=== PATIENT | male | born 1985 | race Asian ===

== ENCOUNTER 2020-09-07 09:19 | Emergency (ER) | payer BC, OTHER ==
[~2020-09-07] VITALS: Ht 170.2 cm; Wt 112.5 kg
[2020-09-07 09:46] VITALS: BP 117/71
[2020-09-07] MEDS ORDERED: KETOROLAC TROMETHAMINE 15 MG/ML VIAL ONE (10:51)
[2020-09-07] MEDS ORDERED: KETOROLAC TROMETHAMINE INJ 30 MG/ML VIAL IM ONE (11:00)
--- NOTE | 2020-09-07 11:40 | NUR ---
Patient discharged to home in stable condition. Written and verbal after care instructions given. Patient verbalizes understanding of instruction.
--- NOTE | 2020-09-08 14:09 | NUR ---
RELAYED POSITIVE PCR RESULT TO PATIENT. INSTRUCTED TO CALL INFECTION CONTROL AND QUARANTINE X14 DAYS.
== END 2020-09-07 11:40 | disposition home or self-care (01) ==
LOC: ER 09:24
DX: U07.1 COVID-19 (principal); R51.9 Headache, unspecified; R43.8 Other disturbances of smell and taste
CPT/HCPCS: 96372; 99283; C9803; J1885; U0003

== ENCOUNTER 2020-09-13 21:23 | Inpatient (IN) | payer BC, OTHER ==
[~2020-09-13] VITALS: Ht 170.2 cm; Wt 105.7 kg
--- NOTE | 2020-09-13 22:33 | NUR ---
BIBSELF C/O SOB.RECENTLY TESTED POS FOR COVID X4 DAYS AGO.; PT AAOX4, PLACED ON O2, 2LPM SAT 97%, PT VSS, NAD NOTED. PENDING ER PROVIDER DEBBI
[2020-09-13] MEDS ORDERED: DEXAMETHASONE SOD PHOSPHATE 10 MG in IV D5W 50 ML IV ONE (23:00)
[2020-09-13] MEDS ORDERED: ACETAMINOPHEN ES 500 MG TABLET PO ONE (23:00)
--- NOTE | 2020-09-13 23:11 | NUR ---
piv started, blood collected sent to lab
--- NOTE | 2020-09-13 23:11 | NUR ---
covid and flu swabs sent
[2020-09-13 23:15] LABS: BASOPHILS % (AUTO) 0.5 % (0.0-2.0); HEMATOCRIT 41 % (39-51); HEMOGLOBIN 13.1 g/dL (13.5-17.5); LYMPHOCYTES # (AUTO) 0.9 /CMM (0.8-4.8); LYMPHOCYTES % (AUTO) 13.5 % (20.0-44.0); MEAN CORPUSCULAR HGB CONC 32 g/dl (31.0-36.0); MEAN CORPUSCULAR VOLUME 68 fL (80-96); MONOCYTES # (AUTO) 0.6 /CMM (0.1-1.30); MONOCYTES % (AUTO) 8.2 % (2.0-12.0); NEUTROPHILS # (AUTO) 5.3 /CMM (1.8-8.9); NEUTROPHILS % (AUTO) 77.8 % (43.0-81.0); PLATELET COUNT (AUTO) 134 /CMM (150-450); RED BLOOD CELL COUNT(AUTO) 6.03 MIL/uL (4.5-6.0); WHITE BLOOD COUNT (AUTO) 6.8 K/uL (4.3-11.0)
[2020-09-13] MEDS ORDERED: ACETAMINOPHEN ES 500 MG TABLET ONE (23:25)
[2020-09-13] MEDS ORDERED: DEXAMETHASONE SOD PHOSPHATE 10 MG/ML VIAL ONE (23:25)
[2020-09-13] MEDS ORDERED: IV NS 0.9% 1,000 ML BAG IV ONE (23:30)
[2020-09-13 23:32] LABS: ALBUMIN 3.4 g/dL (3.4-5.0); BILIRUBIN,TOTAL 0.4 mg/dL (0.2-1.0); CALCIUM, SERUM 8.6 mg/dL (8.5-10.1); CREATININE 1.1 mg/dL (0.6-1.3); POTASSIUM 2.9 mmol/L (3.5-5.1); TOTAL PROTEIN, SERUM 7.9 g/dL (6.4-8.2)
[2020-09-14 00:04] LABS: LYMPHOCYTES % (MANUAL) 14 % (16-48); MONOCYTES % (MANUAL) 13 % (0-11.0); NEUTROPHILS % (MANUAL) 73 (42-76)
[2020-09-14] MEDS ORDERED: ONDANSETRON HCL/PF 4 MG/2 ML VIAL IVP PRN (01:30)
[2020-09-14] MEDS ORDERED: ACETAMINOPHEN 325 MG TABLET PO PRN (01:30)
[2020-09-14] MEDS ORDERED: POTASSIUM CHLORIDE 20 MEQ TAB.PRT.SR PO ONE ×3 (01:30→02:53)
[2020-09-14] MEDS ORDERED: IV NS 0.9% 100 ML IV PRN (01:30)
--- NOTE | 2020-09-14 02:24 | NUR ---
CALLED AFTER HOUR PHARMACY TO VERIFY THE ADMITTING ORDERS
[2020-09-14] MEDS ORDERED: AZITHROMYCIN 250 MG TABLET ONE (02:53)
[2020-09-14] MEDS ORDERED: CEFTRIAXONE 1GM BAG (ER ONLY) 50 ML IV ONE (02:53)
[2020-09-14] MEDS: CEFTRIAXONE 1 G in IV D5W 50 ML IV SCH (03:02)
[2020-09-14] MEDS: AZITHROMYCIN 250 MG TABLET PO SCH (03:03)
--- NOTE | 2020-09-14 03:41 | NUR ---
REPORT GIVEN TO PRODUCTION ARTISTTYLER LEAVITT. WILL TRANSPORT PT VIA ACLS PROTOCOL.
--- NOTE | 2020-09-14 03:54 | NUR ---
pt transported to 2nd floor
[2020-09-14 04:30] VITALS: BP 106/70
--- NOTE | 2020-09-14 04:30 | NUR ---
RANGER AIDE NOTE: RECEIVED PATIENT FROM ER, NO ACUTE DISTRESS NOTED. BREATHING EVEN AND UNLABORED, NO SOB NOTED. IV TO LAC IN PLACE. ORIENTED PATIENT TO ROOM AND USE OF CALL LIGHT. ISOLATION PRECAUTIONS OBSERVED. BED LOCKED AND IN LOWEST POSITION, CALL LIGHT IN REACH. WILL CONTINUE TO MONITOR.
--- NOTE | 2020-09-14 07:15 | NUR ---
CASINO GAMES DEALER NOTE: PATIENT RESTING IN BED, NO ACUTE DISTRESS NOTED. BREATHING EVEN AND UNLABORED, NO SOB NOTED. IV TO LAC IN PLACE. ISOLATION PRECAUTIONS OBSERVED. BED LOCKED AND IN LOWEST POSITION, CALL LIGHT IN REACH. WILL CONTINUE ENDORSE TO DAY NURSE TO CONTINUE WITH PLAN OF CARE.
[2020-09-14 08:00] VITALS: BP 96/61
[2020-09-14] MEDS ORDERED: IV NS 0.9% 1,000 ML IV PRN (08:30)
--- NOTE | 2020-09-14 09:00 | NUR ---
RN NOTES PATIENT SEEN BY JAVI ALONZO.
[2020-09-14] MEDS ORDERED: MULT-447 PO (09:10)
[2020-09-14] MEDS ORDERED: ALLO300T2 PO (09:10)
--- NOTE | 2020-09-14 09:31 | NUR ---
RN NOTES PATIENT SEEN BY DR. KONG.
[2020-09-14] MEDS: GUAIFENESIN/D-METHORPHAN HB 5 ML UDC PO PRN ×2 (11:15→17:54)
[2020-09-14 11:22] LABS: CALCIUM, SERUM 8.9 mg/dL (8.5-10.1); POTASSIUM 3.8 mmol/L (3.5-5.1)
[2020-09-14 11:29] LABS: ALBUMIN 3.2 g/dL (3.4-5.0); BILIRUBIN,TOTAL 0.3 mg/dL (0.2-1.0); MAGNESIUM 2.5 mg/dL (1.8-2.4); PHOSPHORUS 3.2 mg/dL (2.5-4.9); TOTAL PROTEIN, SERUM 8.1 g/dL (6.4-8.2)
[2020-09-14 11:45] LABS: THYROID STIMULATING HORMONE 0.432 uIU/mL (0.358-3.74)
[2020-09-14] MEDS: DEXAMETHASONE SOD PHOSPHATE 10 MG/ML VIAL IV SCH (14:59)
[2020-09-14] MEDS: ENOXAPARIN SODIUM 40 MG/0.4 ML DISP.SYRIN SQ SCH (15:00)
[2020-09-14 17:00] VITALS: BP 103/60
[2020-09-14 19:18] LABS: BILIRUBIN,URINE NEGATIVE (NEGATIVE); BLOOD, URINE NEGATIVE Ery/uL (NEGATIVE); COLOR,URINE YELLOW (YELLOW); LEUKOCYTE ESTERASE ,URINE NEGATIVE (NEGATIVE); NITRITE, URINE NEGATIVE (NEGATIVE); PROTEIN,URINE TRACE mg/dl (NEGATIVE); UGLUCOSE 500 MG/DL mg/dL (NEGATIVE); UROBILINOGEN,URINE 0.2 EU/dL (0.2)
[2020-09-14 19:30] LABS: BACTERIA,URINE Rare /HPF (None Seen); RBC,URINE 0-2 /HPF (0-2); WBC,URINE 0-2 /HPF (0-3)
[2020-09-14 19:31] LABS: MUCUS,URINE Few /LPF (None Seen); SQUAMOUS EPITHELIAL CELL,UR None Seen /HPF (None Seen)
--- NOTE | 2020-09-14 19:47 | NUR ---
SUPERVISOR BACKFILLING NOTES PATIENT RESTING COMFORTABLY IN BED WATCHING TV. TITRATED PATIENT DURING THE SHIFT SINCE THIS AM, NOW ON ROOM AIR DIAN WELL WITH SPO2 OF 94-96%. NOTED ON AND OFF COUGH BUT ABLE TO COUGH OUT SECRETIONS. AMBULATORY WITH STEADY GAIT. LEFT AC # 20 SL INTACT AND PATENT. BED IN LOWEST POSITION ,LOCKED. CALL LIGHT WITHIN REACH. IN NO APPARENT DISTRESS.
[2020-09-14 20:00] VITALS: BP 108/70
--- NOTE | 2020-09-14 20:30 | NUR ---
PLYCOR OPERATOR NOTE: PATIENT RESTING IN BED, NO ACUTE DISTRESS NOTED. BREATHING EVEN AND UNLABORED, NO SOB NOTED. IV TO LAC IN PLACE. ISOLATION PRECAUTIONS OBSERVED. BED LOCKED AND IN LOWEST POSITION, CALL LIGHT IN REACH. WILL CONTINUE TO MONITOR.
--- NOTE | 2020-09-14 23:00 | NUR ---
WEB APPLICATIONS ADMINISTRATOR NOTE: PATIENT CONTINUES TO HAVE DRY COUGH AND HAVING TROUBLE SLEEPING. CONTACTED SOURCE WATER PROTECTION SPECIALIST MD AND RECEIVED ORDER TO CHANGE COUGH MEDICATION TO ROBITUSSIN AC 10ML EVERY 6 HOURS NEEDED. ORDER NOTED AND CARRIED OUT. WILL CONTINUE TO MONITOR.
[2020-09-14] MEDS: GUAIFENESIN/CODEINE 10 ML UDC PO PRN (23:03)
[2020-09-15] VITALS: BP 148/87
[2020-09-15] MEDS: CEFTRIAXONE 1 G in IV D5W 50 ML IV SCH (01:34)
[2020-09-15] MEDS: GUAIFENESIN/CODEINE 10 ML UDC PO PRN ×3 (05:53→20:58)
--- NOTE | 2020-09-15 06:30 | NUR ---
RANCH HAND SUPERVISOR NOTE: PATIENT RESTING IN BED, NO ACUTE DISTRESS NOTED. BREATHING EVEN AND UNLABORED, NO SOB NOTED. IV TO LAC IN PLACE. ISOLATION PRECAUTIONS OBSERVED. PATIENT COMPLAINING OF COUGH AND REQUESTING FOR MEDICATION. ROBITUSSIN AC 10ML ORAL GIVEN PER MD ORDER. BED LOCKED AND IN LOWEST POSITION, CALL LIGHT IN REACH. WILL CONTINUE ENDORSE TO DAY NURSE TO CONTINUE WITH PLAN OF CARE.
--- NOTE | 2020-09-15 07:30 | NUR ---
PT RECEIVED RESTING COMFORTABLY IN BED. NO S/S OR C/O PAIN OR DISTRESS NOTED. SIDE RAILS UP X2, CALL LIGHT LEFT WITHIN REACH. WILL CONTINUE PLAN OF CARE.
[2020-09-15 08:00] VITALS: BP 112/69
[2020-09-15 08:29] LABS: BASOPHILS % (AUTO) 0.1 % (0.0-2.0); HEMATOCRIT 43 % (39-51); HEMOGLOBIN 13.5 g/dL (13.5-17.5); LYMPHOCYTES # (AUTO) 0.8 /CMM (0.8-4.8); LYMPHOCYTES % (AUTO) 5.8 % (20.0-44.0); MEAN CORPUSCULAR HGB CONC 31 g/dl (31.0-36.0); MEAN CORPUSCULAR VOLUME 68 fL (80-96); MONOCYTES # (AUTO) 0.9 /CMM (0.1-1.30); MONOCYTES % (AUTO) 6.5 % (2.0-12.0); NEUTROPHILS # (AUTO) 11.6 /CMM (1.8-8.9); NEUTROPHILS % (AUTO) 87.6 % (43.0-81.0); PLATELET COUNT (AUTO) 179 /CMM (150-450); RED BLOOD CELL COUNT(AUTO) 6.32 MIL/uL (4.5-6.0); WHITE BLOOD COUNT (AUTO) 13.2 K/uL (4.3-11.0)
[2020-09-15] MEDS: ALLOPURINOL 100 MG TABLET PO SCH (08:57)
[2020-09-15] MEDS: DEXAMETHASONE SOD PHOSPHATE 10 MG/ML VIAL IV SCH (08:57)
[2020-09-15] MEDS: MULTIVIT W/MINERALS 1 TAB TABLET PO SCH (08:57)
[2020-09-15] MEDS: ENOXAPARIN SODIUM 40 MG/0.4 ML DISP.SYRIN SQ SCH (08:58)
[2020-09-15 11:15] LABS: CALCIUM, SERUM 8.9 mg/dL (8.5-10.1); CREATININE 0.9 mg/dL (0.6-1.3); MAGNESIUM 2.4 mg/dL (1.8-2.4); PHOSPHORUS 4.2 mg/dL (2.5-4.9); POTASSIUM 3.9 mmol/L (3.5-5.1)
[2020-09-15 12:00] VITALS: BP 106/57
--- NOTE | 2020-09-15 19:30 | NUR ---
TELE/RN OPENING NOTES RECEIVED PATIENT IN BED RESTING. PATIENT IS ALERT AND ORIENTED X 4. NO SIGNS OF SOB OR RESPIRATORY DISTRESS NOTED. PATIENT IN NO SIGNS OF DISTRESS. TELE READING SR. PATIENT HAS IV ACCESS ON RIGHT FOREARM #22G INTACT FLUSHING WELL. SAFETY MEASURES ARE IN PLACE, BED IS LOCKED AND PLACED IN THE LOW POSITION, SIDE RAILS UP X 2. CALL LIGHT IS WITHIN REACH WILL MONITOR THROUGH OUT SHIFT.
--- NOTE | 2020-09-15 19:57 | NUR ---
VERTICAL PUNCH OPERATOR CLOSING NOTES PATIENT RESTING COMFORTABLY IN BED WATCHING TV. A/O X4, ABLE TO MAKE NEEDS KNOWN. IN NO DISTRESS AT THIS TIME. ON ROOM AIR, TOLERATING WELL O2SAT 95%. NOTED ON AND OFF COUGH BUT ABLE TO COUGH OUT SECRETIONS, ADMINISTERED ROBITUSSIN DURING THE DAY. AMBULATORY WITH STEADY GAIT. LEFT AC # 20 LEAKING, DISCONTINUED, AND NO BLEEDING NOTED. INSERTED RIGHT FOREARM IV 22G, C/D/I. BED IN LOWEST POSITION SIDE RAILS UPX2 AND LOCKED. CALL LIGHT WITHIN REACH. ENDORSED PLAN OF CARE TO ONCOMING NURSE.
[2020-09-15 20:00] VITALS: BP 103/54
[2020-09-16] VITALS: BP 99/56
[2020-09-16] MEDS: AZITHROMYCIN 250 MG TABLET PO SCH (02:01)
[2020-09-16] MEDS: CEFTRIAXONE 1 G in IV D5W 50 ML IV SCH (02:01)
[2020-09-16] MEDS: GUAIFENESIN/CODEINE 10 ML UDC PO PRN ×3 (03:45→21:43)
--- NOTE | 2020-09-16 03:45 | NUR ---
TELE/RN NOTES PATIENT REQUESTING FOR COUGH MED. PATIENT GIVEN ROBITUSSIN 10 ML PO. PATIENT IS STABLE WILL CONTINUE TO MONITOR.
[2020-09-16 04:00] VITALS: BP 108/64
--- NOTE | 2020-09-16 06:55 | NUR ---
TELE/RN CLOSING NOTES PATIENT IN BED RESTING. PATIENT IS ALERT AND ORIENTED X 4. NO SIGNS OF SOB OR RESPIRATORY DISTRESS NOTED. PATIENT IN NO SIGNS OF DISTRESS. TELE READING SR. PATIENT HAS IV ACCESS ON RIGHT FOREARM #22G INTACT FLUSHING WELL RUNNING NS AT 100CC/HR. ALL NEEDS HAVE BEEN MET DURING SHIFT. SAFETY MEASURES ARE IN PLACE, BED IS LOCKED AND PLACED IN THE LOW POSITION, SIDE RAILS UP X 2. CALL LIGHT IS WITHIN REACH. WILL ENDORSE CARE TO DAY SHIFT NURSE.
[2020-09-16 07:22] LABS: HEMATOCRIT 40 % (39-51); HEMOGLOBIN 12.6 g/dL (13.5-17.5); LYMPHOCYTES % (AUTO) 9.6 % (20.0-44.0); MEAN CORPUSCULAR HGB CONC 32 g/dl (31.0-36.0); MEAN CORPUSCULAR VOLUME 68 fL (80-96); MONOCYTES % (AUTO) 9.2 % (2.0-12.0); NEUTROPHILS # (AUTO) 8.7 /CMM (1.8-8.9); NEUTROPHILS % (AUTO) 81.2 % (43.0-81.0); PLATELET COUNT (AUTO) 181 /CMM (150-450); WHITE BLOOD COUNT (AUTO) 10.8 K/uL (4.3-11.0)
--- NOTE | 2020-09-16 07:30 | NUR ---
PEDIATRIC DIETICIAN OPENING NOTES BEDSIDE ENDORSEMENT DONE. PATIENT IS IN BED RESTING, AWAKE AND VERBALLY RESPONSIVE. ALERT AND ORIENTED X4. BREATHING EVEN AND UNLABORED, TOLERATING ROOM AIR, NO RESPIRATORY DISTRESS NOTED. ON TELEMONITORING, READING OF SR, HR IN THE MID 70'S, NO CARDIAC DISTRESS. IV LINE ON RIGHT FOREARM #22G INTACT AND PATENT. SAFETY MEASURES IN PLACE: BED IS LOCKED AND ON LOWEST POSITION, SIDE RAILS UP X 2, CALL LIGHT IS WITHIN REACH. WILL CONTINUE TO MONITOR.
[2020-09-16 07:44] LABS: CREATININE 0.8 mg/dL (0.6-1.3); POTASSIUM 3.5 mmol/L (3.5-5.1)
[2020-09-16 08:00] VITALS: BP 101/51
[2020-09-16 08:04] LABS: CALCIUM, SERUM 8.2 mg/dL (8.5-10.1)
[2020-09-16] MEDS: DEXAMETHASONE SOD PHOSPHATE 10 MG/ML VIAL IV SCH (09:44)
[2020-09-16] MEDS: ALLOPURINOL 100 MG TABLET PO SCH (09:44)
[2020-09-16] MEDS: MULTIVIT W/MINERALS 1 TAB TABLET PO SCH (09:44)
[2020-09-16] MEDS: ENOXAPARIN SODIUM 40 MG/0.4 ML DISP.SYRIN SQ SCH (09:45)
--- NOTE | 2020-09-16 12:57 | NUR ---
RN NOTES PATIENT REQUESTED FOR GUAIFENESIN MEDICATION FOR COUGH; TAKEN BY PATIENT, W/ GOOD EFFECT. VERBALIZED DECREASE IN COUGH EPISODE. WILL CONTINUE TO MONITOR.
--- NOTE | 2020-09-16 18:48 | NUR ---
TRAY ROOM WORKER CLOSING NOTES PATIENT IS IN BED AWAKE AND VERBALLY RESPONSIVE. ALERT AND ORIENTED X4, ABLE TO MAKE NEEDS KNOWN. BREATHING EVEN AND UNLABORED, TOLERATING ROOM AIR, NO RESPIRATORY DISTRESS NOTED. ON TELEMONITORING, READING OF SR, HR IN THE 70'S, NO CARDIAC DISTRESS. IV LINE ON RIGHT FOREARM #22G INTACT AND PATENT. SAFETY MEASURES MAINTAINED: BED IS LOCKED AND ON LOWEST POSITION, SIDE RAILS UP X 2, CALL LIGHT IS WITHIN REACH. WILL ENDORSE TO BUTTON SEWER RN FOR ANGELI.
[2020-09-16 21:05] VITALS: BP 104/58
[2020-09-17 00:22] VITALS: BP 115/63
[2020-09-17 05:36] VITALS: BP 104/67
[2020-09-17 07:08] LABS: BASOPHILS % (AUTO) 0.1 % (0.0-2.0); EOSINOPHILS % (AUTO) 0.1 % (0.0-6.0); HEMATOCRIT 40 % (39-51); HEMOGLOBIN 12.6 g/dL (13.5-17.5); LYMPHOCYTES # (AUTO) 1.3 /CMM (0.8-4.8); LYMPHOCYTES % (AUTO) 15.2 % (20.0-44.0); MEAN CORPUSCULAR HGB CONC 32 g/dl (31.0-36.0); MEAN CORPUSCULAR VOLUME 68 fL (80-96); MONOCYTES # (AUTO) 0.9 /CMM (0.1-1.30); MONOCYTES % (AUTO) 11.2 % (2.0-12.0); NEUTROPHILS # (AUTO) 6.1 /CMM (1.8-8.9); NEUTROPHILS % (AUTO) 73.4 % (43.0-81.0); PLATELET COUNT (AUTO) 205 /CMM (150-450); RED BLOOD CELL COUNT(AUTO) 5.81 MIL/uL (4.5-6.0); WHITE BLOOD COUNT (AUTO) 8.3 K/uL (4.3-11.0)
--- NOTE | 2020-09-17 07:32 | NUR ---
SPRING MACHINE OPERATOR NOTE RECEIVED PATIENT IN BED. ALERT AND AWAKE ORIENTED X4 WATCHING TV. BED IN LOWEST POSITION,LOCKED. ABLE TO VERBALIZE NEEDS.
[2020-09-17 07:46] LABS: CALCIUM, SERUM 8.4 mg/dL (8.5-10.1); CREATININE 0.7 mg/dL (0.6-1.3); POTASSIUM 3.7 mmol/L (3.5-5.1)
[2020-09-17 08:00] VITALS: BP 104/62
[2020-09-17] MEDS: DEXAMETHASONE SOD PHOSPHATE 10 MG/ML VIAL IV SCH (09:38)
[2020-09-17] MEDS: MULTIVIT W/MINERALS 1 TAB TABLET PO SCH (09:38)
[2020-09-17] MEDS: ALLOPURINOL 100 MG TABLET PO SCH (09:38)
[2020-09-17] MEDS: ENOXAPARIN SODIUM 40 MG/0.4 ML DISP.SYRIN SQ SCH (09:42)
--- NOTE | 2020-09-17 11:15 | NUR ---
AIRCRAFT SYSTEMS REPAIRER NOTES PATIENT SEEN BY DR. KONG
[2020-09-17 12:00] VITALS: BP 97/61
[2020-09-17 16:00] VITALS: BP 102/59
[2020-09-17] MEDS: GUAIFENESIN/CODEINE 10 ML UDC PO PRN (17:42)
--- NOTE | 2020-09-17 19:15 | NUR ---
ONCOLOGY PHARMACIST NOTES PATIENT RESTING COMFORTABLY IN BED WATCHING TV. REMAIN ON ROOM AIR DIAN WELL WITH SPO2 OF 90-96%. STILL WITH ON AND OFF COUGH BUT ABLE TO COUGH OUT SECRETIONS. AMBULATORY WITH STEADY GAIT. LEFT HAND # 24 SL INTACT AND PATENT. BED IN LOWEST POSITION ,LOCKED. CALL LIGHT WITHIN REACH. IN NO APPARENT DISTRESS.
--- NOTE | 2020-09-17 19:30 | NUR ---
SEARCH SPECIALIST NOTE: PATIENT RESTING IN BED, NO ACUTE DISTRESS NOTED. BREATHING EVEN AND UNLABORED, NO SOB NOTED. IV TO LEFT HAND IN PLACE. ISOLATION PRECAUTIONS OBSERVED. BED LOCKED AND IN LOWEST POSITION, CALL LIGHT IN REACH. WILL CONTINUE TO MONITOR.
[2020-09-17 20:00] VITALS: BP 100/59
[2020-09-18] VITALS: BP 126/59
[2020-09-18 04:00] VITALS: BP 115/69
[2020-09-18] MEDS: GUAIFENESIN/CODEINE 10 ML UDC PO PRN (05:09)
--- NOTE | 2020-09-18 05:10 | NUR ---
INFORMATION OPERATOR NOTE: PATIENT REQUESTING FOR COUGH MEDICATION, ROBITUSSIN AC 10ML ORAL GIVEN PER MD ORDER. WILL CONTINUE TO MONITOR.
--- NOTE | 2020-09-18 06:20 | NUR ---
DIE SET UP WORKER NOTE: PATIENT RESTING IN BED, NO ACUTE DISTRESS NOTED. BREATHING EVEN AND UNLABORED, NO SOB NOTED. IV TO LEFT HAND IN PLACE. ISOLATION PRECAUTIONS OBSERVED. BED LOCKED AND IN LOWEST POSITION, CALL LIGHT IN REACH. WILL ENDORSE TO DAY NURSE TO CONTINUE WITH PLAN OF CARE.
--- NOTE | 2020-09-18 07:12 | NUR ---
RN NOTES RECEIVED PATIENT IN BED ALERT AND AWAKE EATING BREAKFAST. ON ROOM AIR WITH SPO2 OF 94%. DENIES ANY C/O PAIN NOR DISCOMFORT. ON TELEMONITORING SR:70. BED IN LOWEST POSITION, LOCKED. CALL LIGHT WITHIN REACH. FREQUENT VISUAL CHECK DONE.
[2020-09-18 07:49] LABS: BASOPHILS % (AUTO) 0.2 % (0.0-2.0); EOSINOPHILS % (AUTO) 0.4 % (0.0-6.0); HEMATOCRIT 41 % (39-51); HEMOGLOBIN 12.8 g/dL (13.5-17.5); LYMPHOCYTES % (AUTO) 20.2 % (20.0-44.0); MEAN CORPUSCULAR HGB CONC 31 g/dl (31.0-36.0); MEAN CORPUSCULAR VOLUME 70 fL (80-96); MONOCYTES % (AUTO) 10.5 % (2.0-12.0); NEUTROPHILS # (AUTO) 6.7 /CMM (1.8-8.9); NEUTROPHILS % (AUTO) 68.7 % (43.0-81.0); PLATELET COUNT (AUTO) 230 /CMM (150-450); RED BLOOD CELL COUNT(AUTO) 5.91 MIL/uL (4.5-6.0); WHITE BLOOD COUNT (AUTO) 9.8 K/uL (4.3-11.0)
[2020-09-18 08:00] VITALS: BP 100/60
[2020-09-18 08:04] LABS: CALCIUM, SERUM 8.2 mg/dL (8.5-10.1); CREATININE 0.6 mg/dL (0.6-1.3); POTASSIUM 3.8 mmol/L (3.5-5.1)
[2020-09-18] MEDS: DEXAMETHASONE SOD PHOSPHATE 10 MG/ML VIAL IV SCH (09:11)
[2020-09-18] MEDS: MULTIVIT W/MINERALS 1 TAB TABLET PO SCH (09:12)
[2020-09-18] MEDS: ALLOPURINOL 100 MG TABLET PO SCH (09:12)
[2020-09-18] MEDS: ENOXAPARIN SODIUM 40 MG/0.4 ML DISP.SYRIN SQ SCH (09:14)
[2020-09-18] MEDS ORDERED: ALBU18HF2 INH (11:45)
[2020-09-18] MEDS ORDERED: METH4TAB17 PO (11:45)
[2020-09-18 12:00] VITALS: BP 107/64
[2020-09-18] MEDS ORDERED: INFLUENZA VACCINE 2020-21 0.5 ML DISP.SYRIN IM ONE (13:00)
--- NOTE | 2020-09-18 14:00 | NUR ---
RN NOTES ALERT AND ORIENTED X4. AMBULATORY WITH STEADY GAIT. NO S/S OF RESPIRATORY DISTRESS. PATIENT FOR DISCHARGE. DISCHARGE PACKET/EDUCATION/TEACHINGS PROVIDED AND GIVEN TO PATIENT INCLUDING COVID-19 PRECAUTIONS/ISOLATIONS/CDC GUIDELINES. ON ROOM AIR WITH SPO2 OF 93-95%. DENIES ANY C/O PAIN NOR DISCOMFORT. WITH ON AND OFF COUGH BUT ABLE TO COUGH OUT SECRETIONS. ALL BELONGINGS ACCOUNTED FOR. PATIENT STATED HE RECEIVED A NOTIFICATION FROM [facility] RE: HIS MEDS AND WILL PICK IT UP. IV ACCESS REMOVED WITH CATHETER TIP INTACT WITH GAUZE DRESSING IN PLACE. FLU VACCINE GIVEN, DIAN WELL. PATIENT LEFT IN STABLE CONDITION.
== END 2020-09-18 14:00 | disposition home or self-care (01) | DRG 177 ==
LOC: ER 21:25 → TRANSITION 09-14 02:08 → TELE2 09-14 03:15
PROVIDERS: ADMIT Nurse Practitioner Acute Care; ATTEND Nurse Practitioner Acute Care
DX: U07.1 COVID-19 (principal); J12.89 Other viral pneumonia; J96.01 Acute respiratory failure with hypoxia; E87.1 Hypo-osmolality and hyponatremia; M62.82 Rhabdomyolysis; D69.6 Thrombocytopenia, unspecified; E86.1 Hypovolemia; F17.200 Nicotine dependence, unspecified, uncomplicated; M10.9 Gout, unspecified; R94.5 Abnormal results of liver function studies; R73.03 Prediabetes
CPT/HCPCS: 36415; 71045-TC; 80048-TC; 80053-TC; 80061-TC; 81001; 82550-TC; 82553; 82728-TC; 83615-TC; 83735-TC; 84100-TC; 84443-TC; 85025-TC; 85378-TC; 86140-TC; 86803; 87040-TC; 87070-TC; 87081-TC; 87086-TC; G0378; J0696; J1100; J1650; J2405; J7030; J7060; Q2036; U0003

== ENCOUNTER 2020-09-23 11:08 | Outpatient (CLI) | payer BC ==
[~2020-09-23 11:08] MED LIST: ALBU18HF2 INH; ALLO300T2 PO; METH4TAB17 PO; MULT-447 PO
== END 2020-09-23 23:59 | disposition home or self-care (01) ==
LOC: RAD 11:08
PROVIDERS: ATTEND Family Medicine
DX: U07.1 COVID-19 (principal)
CPT/HCPCS: 71046

== ENCOUNTER 2020-11-17 14:07 | Outpatient (CLI) | payer BC | END 2020-11-17 23:59 | disposition home or self-care (01) | LOC: RAD 14:07 | PROVIDERS: ATTEND Family Medicine | DX: U07.1 COVID-19 (principal); J12.82 Pneumonia due to coronavirus disease 2019 | CPT/HCPCS: 71046 ==

== ENCOUNTER 2020-12-28 08:10 | Outpatient (CLI) | payer BC ==
[2020-12-28 08:46] LABS: BASOPHILS # (AUTO) 0.1 /CMM (0.0-0.2); BASOPHILS % (AUTO) 0.7 % (0.0-2.0); EOSINOPHILS % (AUTO) 2.1 % (0.0-6.0); HEMATOCRIT 45 % (39-51); HEMOGLOBIN 13.9 g/dL (13.5-17.5); LYMPHOCYTES % (AUTO) 29.9 % (20.0-44.0); MEAN CORPUSCULAR HGB CONC 31 g/dl (31.0-36.0); MEAN CORPUSCULAR VOLUME 71 fL (80-96); MONOCYTES # (AUTO) 0.8 /CMM (0.1-1.30); MONOCYTES % (AUTO) 7.9 % (2.0-12.0); NEUTROPHILS # (AUTO) 5.9 /CMM (1.8-8.9); NEUTROPHILS % (AUTO) 59.4 % (43.0-81.0); PLATELET COUNT (AUTO) 282 /CMM (150-450); RED BLOOD CELL COUNT(AUTO) 6.29 MIL/uL (4.5-6.0); WHITE BLOOD COUNT (AUTO) 9.9 K/uL (4.3-11.0)
[2020-12-28 09:04] LABS: ALBUMIN 4.3 g/dL (3.4-5.0); BILIRUBIN,TOTAL 0.4 mg/dL (0.2-1.0); CALCIUM, SERUM 9.4 mg/dL (8.5-10.1); POTASSIUM 3.8 mmol/L (3.5-5.1); TOTAL PROTEIN, SERUM 8.3 g/dL (6.4-8.2)
[2020-12-28 09:12] LABS: THYROID STIMULATING HORMONE 2.035 uIU/mL (0.358-3.74)
[2020-12-28 10:11] LABS: BILIRUBIN,URINE NEGATIVE (NEGATIVE); COLOR,URINE YELLOW (YELLOW); LEUKOCYTE ESTERASE ,URINE NEGATIVE (NEGATIVE); NITRITE, URINE NEGATIVE (NEGATIVE); PH,URINE 5.5 (5.0-8.0); PROTEIN,URINE NEGATIVE (NEGATIVE); UGLUCOSE NEGATIVE (NEGATIVE); UROBILINOGEN,URINE 0.2 EU/dL (0.2)
[2020-12-28 10:16] LABS: EOSINOPHILS % (MANUAL) 1 % (0-4); LYMPHOCYTES % (MANUAL) 35 % (16-48); MONOCYTES % (MANUAL) 8 % (0-11.0); MYELOCYTES % 1 % (0-0); NEUTROPHILS % (MANUAL) 55 (42-76)
== END 2020-12-28 23:59 | disposition home or self-care (01) ==
LOC: LAB 08:10
PROVIDERS: ATTEND Family Medicine
DX: K80.20 Calculus of gallbladder without cholecystitis without obstruction (principal); G47.33 Obstructive sleep apnea (adult) (pediatric); L85.3 Xerosis cutis; Z72.820 Sleep deprivation
CPT/HCPCS: 36415; 80053-TC; 80061-TC; 82306; 84439-TC; 84443-TC; 85025-TC

== ENCOUNTER 2021-02-02 14:51 | Emergency (ER) | payer BC ==
[~2021-02-02] VITALS: Ht 167.6 cm; Wt 104.3 kg
[2021-02-02 14:57] VITALS: BP 134/71
[2021-02-02] MEDS ORDERED: FLUORESCEIN SODIUM OPHTH 1 EA STRIP ONE (15:03)
[2021-02-02] MEDS ORDERED: AMOX-430 PO (15:12)
== END 2021-02-02 15:17 | disposition home or self-care (01) ==
LOC: ER 14:51
DX: S00.31XA Abrasion of nose, initial encounter (principal); S00.212A Abrasion of left eyelid and periocular area, initial encounter; Z79.899 Other long term (current) drug therapy; W55.03XA Scratched by cat, initial encounter; Y93.89 Activity, other specified; Y92.89 Other specified places as the place of occurrence of the external cause; Y99.8 Other external cause status

== ENCOUNTER 2021-02-14 08:28 | Outpatient (CLI) | payer BC ==
[~2021-02-14 08:28] MED LIST changes: +AMOX-430 PO
[2021-02-14 09:50] LABS: BILIRUBIN,URINE NEGATIVE (NEGATIVE); LEUKOCYTE ESTERASE ,URINE NEGATIVE (NEGATIVE); NITRITE, URINE NEGATIVE (NEGATIVE); PH,URINE 5.5 (5.0-8.0); PROTEIN,URINE NEGATIVE (NEGATIVE); UGLUCOSE NEGATIVE (NEGATIVE); UROBILINOGEN,URINE 0.2 EU/dL (0.2)
[2021-02-14 09:56] LABS: BASOPHILS % (AUTO) 0.4 % (0.0-2.0); COLOR,URINE STRAW (YELLOW); EOSINOPHILS % (AUTO) 1.5 % (0.0-6.0); HEMATOCRIT 41 % (39-51); LYMPHOCYTES # (AUTO) 2.8 /CMM (0.8-4.8); LYMPHOCYTES % (AUTO) 31.7 % (20.0-44.0); MEAN CORPUSCULAR HGB CONC 32 g/dl (31.0-36.0); MEAN CORPUSCULAR VOLUME 70 fL (80-96); MONOCYTES # (AUTO) 0.5 /CMM (0.1-1.30); MONOCYTES % (AUTO) 5.4 % (2.0-12.0); NEUTROPHILS # (AUTO) 5.4 /CMM (1.8-8.9); PLATELET COUNT (AUTO) 270 /CMM (150-450); WHITE BLOOD COUNT (AUTO) 8.8 K/uL (4.3-11.0)
[2021-02-14 10:06] LABS: BILIRUBIN,TOTAL 0.4 mg/dL (0.2-1.0); CALCIUM, SERUM 9.2 mg/dL (8.5-10.1); CREATININE 0.8 mg/dL (0.6-1.3); TOTAL PROTEIN, SERUM 8.1 g/dL (6.4-8.2)
[2021-02-14 10:17] LABS: FREE T4 (FREE THYROXINE) 1.03 ng/dL (0.76-1.46); THYROID STIMULATING HORMONE 2.015 uIU/mL (0.358-3.74); URIC ACID 7.2 mg/dL (2.6-7.2)
== END 2021-02-14 23:59 | disposition home or self-care (01) ==
LOC: LAB 08:28
PROVIDERS: ATTEND Family Medicine
DX: G47.33 Obstructive sleep apnea (adult) (pediatric) (principal); Z00.01 Encounter for general adult medical examination with abnormal findings
CPT/HCPCS: 36415; 80053-TC; 80061-TC; 82306; 84439-TC; 84443-TC; 84550-TC; 85025-TC

== ENCOUNTER 2021-05-24 08:47 | Outpatient (CLI) | payer BC ==
[2021-05-24 09:52] LABS: BASOPHILS # (AUTO) 0.1 K/uL (0.0-0.2); BASOPHILS % (AUTO) 0.5 % (0.0-2.0); EOSINOPHILS % (AUTO) 2.3 % (0.0-6.0); HEMATOCRIT 41 % (39-51); HEMOGLOBIN 13.3 g/dL (13.5-17.5); LYMPHOCYTES # (AUTO) 2.8 K/uL (0.8-4.8); LYMPHOCYTES % (AUTO) 28.5 % (20.0-44.0); MEAN CORPUSCULAR HGB CONC 32 g/dl (31.0-36.0); MEAN CORPUSCULAR VOLUME 70 fL (80-96); MONOCYTES # (AUTO) 0.6 K/uL (0.1-1.30); MONOCYTES % (AUTO) 6.3 % (2.0-12.0); NEUTROPHILS # (AUTO) 6.1 K/uL (1.8-8.9); NEUTROPHILS % (AUTO) 62.4 % (43.0-81.0); PLATELET COUNT (AUTO) 270 K/uL (150-450); RED BLOOD CELL COUNT(AUTO) 5.93 MIL/uL (4.5-6.0); WHITE BLOOD COUNT (AUTO) 9.8 K/uL (4.3-11.0)
[2021-05-24 10:02] LABS: BILIRUBIN,URINE NEGATIVE (NEGATIVE); COLOR,URINE YELLOW (YELLOW); LEUKOCYTE ESTERASE ,URINE NEGATIVE (NEGATIVE); NITRITE, URINE NEGATIVE (NEGATIVE); PROTEIN,URINE NEGATIVE (NEGATIVE); UGLUCOSE NEGATIVE (NEGATIVE); UROBILINOGEN,URINE 0.2 EU/dL (0.2)
[2021-05-24 10:19] LABS: ALBUMIN 4.2 g/dL (3.4-5.0); BILIRUBIN,TOTAL 0.3 mg/dL (0.2-1.0); CALCIUM, SERUM 8.9 mg/dL (8.5-10.1); CREATININE 0.9 mg/dL (0.6-1.3); TOTAL PROTEIN, SERUM 8.3 g/dL (6.4-8.2)
== END 2021-05-24 23:59 | disposition home or self-care (01) ==
LOC: RAD 08:47
PROVIDERS: ATTEND Family Medicine
DX: Z01.818 Encounter for other preprocedural examination (principal); Z79.899 Other long term (current) drug therapy
CPT/HCPCS: 36415; 71046; 80053-TC; 85025-TC

== ENCOUNTER 2021-06-01 05:54 | Outpatient (CLI) | payer BC | END 2021-06-01 23:59 | disposition home or self-care (01) | LOC: LAB 05:54 | PROVIDERS: ATTEND Surgery | DX: Z01.812 Encounter for preprocedural laboratory examination (principal); Z20.822 Contact with and (suspected) exposure to COVID-19 | CPT/HCPCS: C9803; U0003 ==

== ENCOUNTER 2021-06-07 06:09 | Day surgery (SDC) | payer BC ==
[2021-06-07] MEDS ORDERED: BUPIVACAINE MPF W/EPI 0.25% 30 ML VIAL ONE (07:00)
[2021-06-07] MEDS ORDERED: ANESTHESIA TRAY IN PYXIS 1 EA TRAY MC ONE (07:00)
[2021-06-07] MEDS ORDERED: LIDOCAINE 1% INJ 50 ML MDV IJ ONE (07:00)
[2021-06-07] MEDS ORDERED: BUPIVACAINE MPF 0.5% W/EPI INJ 30 ML VIAL ONE (07:00)
[2021-06-07] MEDS ORDERED: MIDAZOLAM HCL 2 MG/2ML VIAL ONE (07:26)
[2021-06-07] MEDS ORDERED: HYDROMORPHONE INJ 2 MG/ML DISP.SYRIN ONE (07:26)
[2021-06-07] MEDS ORDERED: ROCURONIUM BROMIDE 50 MG/5 ML ONE ×2 (07:26→08:01)
[2021-06-07] MEDS ORDERED: HYDR-3976 GT (09:19)
[2021-06-07] MEDS ORDERED: NORCO 5/325 PO (09:21)
[2021-06-07] MEDS ORDERED: HYDROCODONE/APAP 5/325MG TABLET ONE (10:46)
== END 2021-06-07 11:30 | disposition home or self-care (01) ==
LOC: DS 06:09
PROVIDERS: ATTEND Surgery
DX: K80.10 Calculus of gallbladder with chronic cholecystitis without obstruction (principal); K21.9 Gastro-esophageal reflux disease without esophagitis; E66.01 Morbid (severe) obesity due to excess calories; Z98.890 Other specified postprocedural states; Z79.899 Other long term (current) drug therapy
CPT/HCPCS: 47562; J1170; J2250; J3490 ×2; 88304-TC; J0330; J0690; J1100; J1885; J2405; J2704; J7030

== ENCOUNTER 2021-10-14 02:30 | Emergency (ER) | payer BC ==
[~2021-10-14] VITALS: Ht 167.6 cm; Wt 113.4 kg
[~2021-10-14 02:30] MED LIST changes: +NORCO 5/325 PO
[2021-10-14 04:33] VITALS: BP 128/85
--- NOTE | 2021-10-14 05:44 | NUR ---
Patient discharged to home in stable condition. Written and verbal after care instructions given. Patient verbalizes understanding of instruction.
== END 2021-10-14 05:45 | disposition home or self-care (01) ==
LOC: ER 02:33
DX: J02.8 Acute pharyngitis due to other specified organisms (principal)
CPT/HCPCS: 86403-TC; 87070-TC

== ENCOUNTER 2021-12-20 09:43 | Outpatient (CLI) | payer BC ==
[2021-12-20 10:53] LABS: BASOPHILS % (AUTO) 0.5 % (0.0-2.0); EOSINOPHILS % (AUTO) 1.9 % (0.0-6.0); HEMATOCRIT 43 % (39-51); HEMOGLOBIN 13.4 g/dL (13.5-17.5); LYMPHOCYTES # (AUTO) 2.8 K/uL (0.8-4.8); LYMPHOCYTES % (AUTO) 26.7 % (20.0-44.0); MEAN CORPUSCULAR HGB CONC 32 g/dl (31.0-36.0); MEAN CORPUSCULAR VOLUME 69 fL (80-96); MONOCYTES # (AUTO) 0.6 K/uL (0.1-1.30); MONOCYTES % (AUTO) 6.2 % (2.0-12.0); NEUTROPHILS # (AUTO) 6.7 K/uL (1.8-8.9); NEUTROPHILS % (AUTO) 64.7 % (43.0-81.0); PLATELET COUNT (AUTO) 275 K/uL (150-450); RED BLOOD CELL COUNT(AUTO) 6.18 MIL/uL (4.5-6.0); WHITE BLOOD COUNT (AUTO) 10.4 K/uL (4.3-11.0)
[2021-12-20 11:55] LABS: ALBUMIN 4.2 g/dL (3.4-5.0); BILIRUBIN,TOTAL 0.3 mg/dL (0.2-1.0); CREATININE 0.9 mg/dL (0.6-1.3); POTASSIUM 4.1 mmol/L (3.5-5.1); TOTAL PROTEIN, SERUM 8.2 g/dL (6.4-8.2)
== END 2021-12-20 23:59 | disposition home or self-care (01) ==
LOC: LAB 09:43
PROVIDERS: ATTEND Family Medicine
DX: E78.5 Hyperlipidemia, unspecified (principal); E53.9 Vitamin B deficiency, unspecified; E53.8 Deficiency of other specified B group vitamins; Z79.899 Other long term (current) drug therapy
CPT/HCPCS: 36415; 80053-TC; 82607-TC; 82728-TC; 83540-TC; 85025-TC

== ENCOUNTER 2022-05-10 09:39 | Outpatient (CLI) | payer BC | END 2022-05-10 23:59 | disposition home or self-care (01) | LOC: RAD 09:39 | PROVIDERS: ATTEND Family Medicine | DX: Z01.818 Encounter for other preprocedural examination (principal) | CPT/HCPCS: 71046 ==

== ENCOUNTER 2022-05-10 10:26 | Outpatient (CLI) | payer BC | END 2022-05-10 23:59 | disposition home or self-care (01) | LOC: LAB 10:26 | PROVIDERS: ATTEND Surgery | DX: Z01.812 Encounter for preprocedural laboratory examination (principal); Z20.822 Contact with and (suspected) exposure to COVID-19 | CPT/HCPCS: U0003; C9803 ==

== ENCOUNTER 2022-05-16 08:37 | Inpatient (IN) | payer BC ==
[~2022-05-16] VITALS: Ht 167.6 cm; Wt 68.9 kg
[2022-05-16 09:00] VITALS: BP 116/60
--- NOTE | 2022-05-16 09:00 | NUR ---
RN NOTE PATIENT CAME TO UNIT AMBULATING WITH NO SIGNS OF DISTRESS FROM HOME. PATIENT IS A DAY SURGERY, SURGERY SCHEDULE FOR 1300, ANOSCOPY POSSIBLE HEMORROHOIDECTOMY POSSIBLE HEMORRHOID ARTERY LIGATION POSSIBLE PROCTOPLASTY. PATIENT AWAKE IN BED RESTING. A/O X 4. V/S TAKEN, STABLE AND RECORDED T:98.1, P:72, R:18, BP:116/60, O2: 99%. NO S/S OF PAIN NOTED AT THIS TIME. ON ROOM AIR, NO DISTRESS OR SHORTNESS OF BREATH NOTED. NO IV ACCESS AT THE MOMENT. ORIENTED PATIENT TO ROOM SET-UP AND EDUCATED PATIENT ON THE USE OF CALL LIGHT. SKIN ASSESSMENT DONE, SKIN INTACT. FALL AND SAFETY MEASURES IN PLACE, BED ALARM ON, BED IN LOW AND LOCK POSITION, CALL LIGHT AND TABLE WITHIN EASY REACH, SIDE RAILS UP X2. WILL CONTINUE TO MONITOR.
[2022-05-16] MEDS ORDERED: BUPR100T7 PO (09:49)
[2022-05-16] MEDS ORDERED: FOLI0.4T6 PO (09:49)
--- NOTE | 2022-05-16 12:30 | NUR ---
RN NOTE PATIENT IS NOT IN ROOM, PATIENT WAS TAKEN FOR SURGERY VIA GURNEY WITH NO SIGNS OF DISTRESS.
[2022-05-16] MEDS ORDERED: HYDROMORPHONE INJ 2 MG/ML DISP.SYRIN ONE (12:45)
[2022-05-16] MEDS ORDERED: FENTANYL PF 250MCG/5ML AMPUL ONE (12:45)
[2022-05-16] MEDS ORDERED: FAMOTIDINE/PF INJ 20 MG/2 ML VIAL IV ONE (12:46)
[2022-05-16] MEDS ORDERED: MIDAZOLAM HCL 2 MG/2ML VIAL ONE (12:46)
[2022-05-16] MEDS ORDERED: ROCURONIUM BROMIDE 50 MG/5 ML ONE (12:46)
[2022-05-16] MEDS ORDERED: THROMBIN (BOVINE) 5,000 UNITS VIAL TP ONE (13:26)
[2022-05-16] MEDS ORDERED: LIDOCAINE HCL/MPF 1% 30 ML VIAL IJ ONE (13:26)
[2022-05-16] MEDS ORDERED: GELATIN SPONGE,ABSORBABLE 1 EA SPONGE TP ONE (13:26)
[2022-05-16] MEDS ORDERED: BUPIVACAINE MPF W/EPI 0.25% 30 ML VIAL ONE (13:26)
[2022-05-16] MEDS ORDERED: GLYCOPYRROLATE 0.2 MG/ML VIAL ONE (13:27)
[2022-05-16] MEDS ORDERED: METRONIDAZOLE 500MG/ NS 100ML 100 ML IV ONE (13:34)
[2022-05-16] MEDS ORDERED: ANESTHESIA TRAY IN PYXIS 1 EA TRAY MC ONE (14:53)
--- NOTE | 2022-05-16 15:30 | NUR ---
RN NOTE PATIENT IS IN HIS ROOM, BACK FROM SURGERY (HEMORRHOIDECTOMY, HEMORRHOID ARTERY LIGATION PROCTOPLASTY. REPORT RECEIVED FROM FRANCISCO. V/S TAKEN, STABLE AND RECORDED. T:98.1, P:95, R:18, BP:119/48, O2: 99% 2L OXYGEN VIA NC. NO S/S OF PAIN NOTED AT THIS TIME. PATIENT IN ROOM RESTING COMFORTABLY. WILL CONTINUE TO MONITOR.
[2022-05-16 16:00] VITALS: BP 119/40
--- NOTE | 2022-05-16 18:32 | NUR ---
RN CLOSING NOTE PATIENT AWAKE IN BED RESTING. NO S/S OF PAIN NOTED AT THIS TIME. ON ROOM AIR, NO DISTRESS OR SHORTNESS OF BREATH NOTED. IV ACCESS L HAND INTACT, PATENT AND FLUSHING WELL. FALL AND SAFETY MEASURES IN PLACE, BED ALARM ON, BED IN LOW AND LOCK POSITION, CALL LIGHT AND TABLE WITHIN EASY REACH, SIDE RAILS UP X2. WILL ENDORSE TO WATERSHED COORDINATOR.
--- NOTE | 2022-05-16 19:34 | NUR ---
MS RN OPENING NOTES RECEIVED PATIENT RESTING IN BED COMFORTABLY; A/OX4, BREATHING EVEN AND UNLABORED; TOLERATING ROOM AIR WELL; NO SOB NOTED; PER AM SHIFT, PATIENT CLEARED FOR D/C AWAITING LEAD ACCOUNTANT TO ASSESS HIM PRIOR TO D/C. WILL CONFIRM WITH CHARGE NURSE; L HAND #22G, INTACT AND PATENT, FLUSHES WELL; SAFETY PRECAUTIONS IMPLEMENTED, BED LOCKED IN LOW POSITION; SIDE RAILSX2; CALL LIGHT WITHIN REACH; WILL CONT PLAN OF CARE
[2022-05-16 20:00] VITALS: BP 154/84
[2022-05-16] MEDS: HYDROMORPHONE INJ 2 MG/ML DISP.SYRIN IV PRN (20:23)
--- NOTE | 2022-05-16 21:43 | NUR ---
MS RN NOTES PATIENT COMPLAINT OF 8/10 PAIN LOWER BACK D/T HEMORRHOIDS; NO MEDS ORDERED BECAUSE PATIENT IS SCHEDULED TO BE D/C, PATIENT STILL HAS NOT URINATED; INFORMED WELLNESS SPA MANAGER INSOLE TAPE STITCHER [place], PER INSOLE TAPE STITCHER UCO OK FOR PATIENT TO STAY OVER NIGHT; BLADDER SCANNER SHOWS 400-500CC URINE. PER INSOLE TAPE STITCHER UCO, OK FOR 1ML MORPHINE IVP; ORDERS RECEIVED AND CARRIED OUT;
--- NOTE | 2022-05-16 21:56 | NUR ---
MS RN NOTES PATIENT REPORTED PAIN LEVEL IS OKAY, ATTEMPTING TO AMBULATE IN THE UNIT TO HELP WITH URINATION; SO FAR NO URINE OUTPUT PER PATIENT; WILL CONT TO ASSESS
--- NOTE | 2022-05-16 23:10 | NUR ---
MS RN NOTES PATIENT STILL COMPLAINING OF PAIN; INFORMED CHARGE NURSE; PER JAVI ALMAZAN, ORDER TORADOL 15MG IVP ONCE. ORDERS RECEIVED AND CARRIED OUT; AWAITING PHARMACY TO VERIFY MEDICATION; INFORMED DR. ESPINOSA OF PATIENT SITUATION;
[2022-05-16] MEDS ORDERED: KETOROLAC TROMETHAMINE INJ 30 MG/ML VIAL IV ONE (23:30)
--- NOTE | 2022-05-16 23:35 | NUR ---
MS RN NOTES KETOROLAC MED WASTE RECORDED, WITNESSED BY TYLER VILLANUEVA
--- NOTE | 2022-05-17 00:45 | NUR ---
MS RN NOTES PATIENT UNCOMFORTABLE; MENTIONED HE FEELS REALLY BAD PAIN IN HIS SACRAL AREA; PATIENT OFFERED ICE PACKS; PER PATIENT ICE PACK ALLEVIATED DISCOMFORT;
[2022-05-17] MEDS: HYDROMORPHONE INJ 2 MG/ML DISP.SYRIN IV PRN (03:23)
--- NOTE | 2022-05-17 06:37 | NUR ---
MS RN CLOSING NOTES PATIENT RESTING IN BED COMFORTABLY; A/OX4, BREATHING EVEN AND UNLABORED; NO SOB NOTED; TOLERATING ROOM AIR WELL; PATIENT ABLE TO MAKE NEEDS KNOWN; PATIENT REPORTS FEELING MUCH BETTER NOW COMPARED TO BEGINNING OF SHIFT; PATIENT REPORTED SISTER WILL PICK HIM UP AROUND 0730 OR 0800 FOR D/C. BLADDER SCAN RESULTS: 120CC; CHARGE NURSE MADE AWARE; PATIENT AMBULATES TO RESTROOM WITH STEADY GAIT AND REPORTS PAIN LEVEL 3/10. PATIENT VERBALIZED ICE PACKS HAVE HELPED EASE THE PAIN TREMENDOUSLY; L AC #22G S/L INTACT AND PATENT, FLUSHES WELL; ALL NEEDS RENDERED; SAFETY PRECAUTIONS IMPLEMENTED; BED LOCKED IN LOW POSITION; SIDE RAILSX2, CALL LIGHT WITHIN REACH; WILL ENDORSE ANGELI TO ONCOMING SHIFT
--- NOTE | 2022-05-17 07:30 | NUR ---
RN Opening Report PT AOx4, pending discharge, per nurse all documents were completed. Patient VSS, able to exzpress his own concerns, states he would like to have breakfast before leaving. Discharge instructions reviewed and patient verbalizes understanding. Will continue to monitor throughout shift.
--- NOTE | 2022-05-17 08:10 | NUR ---
electronic security specialist Note PT AOx4, states he is ready for discharge, reviewed instructions, provided d/c documentation, prescription, and belongings. Wheeled to main entrance by HOTEL AND DINING ROOM CASHIER, no incidents to report patient safely discharged to his .
== END 2022-05-17 08:30 | disposition home or self-care (01) | DRG 331 ==
LOC: DS 08:37 → MED 08:39
PROVIDERS: ADMIT Surgery; ATTEND Surgery
PROC: 0DQP7ZZ Repair Rectum, Via Natural or Artificial Opening (ICD-10-PCS; principal; 2022-05-16)
PROC: 06LY7CC Occlusion of Hemorrhoidal Plexus with Extraluminal Device, Via Natural or Artificial Opening (ICD-10-PCS; principal; 2022-05-16)
PROC: 0DJD8ZZ Inspection of Lower Intestinal Tract, Via Natural or Artificial Opening Endoscopic (ICD-10-PCS; principal; 2022-05-16)
PROC: 06BY3ZC Excision of Hemorrhoidal Plexus, Percutaneous Approach (ICD-10-PCS; principal; 2022-05-16)
DX: K64.8 Other hemorrhoids (principal); K21.9 Gastro-esophageal reflux disease without esophagitis
CPT/HCPCS: 87081-TC; A6402; A6403; G0378; J0690; J1170; J1885; J2250; J2405; J2704; J2765; J3010; J3490; J7030

== ENCOUNTER 2022-05-22 06:34 | Emergency (ER) | payer BC, OTHER ==
[~2022-05-22] VITALS: Ht 167.6 cm; Wt 113.4 kg
[~2022-05-22 06:34] MED LIST changes: -ALBU18HF2 INH; -AMOX-430 PO; +BUPR100T7 PO; +FOLI0.4T6 PO; -METH4TAB17 PO; -MULT-447 PO; -NORCO 5/325 PO
[2022-05-22] MEDS ORDERED: KETOROLAC TROMETHAMINE INJ 30 MG/ML VIAL IV ONE (07:00)
[2022-05-22] MEDS ORDERED: IV NS 0.9% 1,000 ML BAG IV ONE (07:00)
--- NOTE | 2022-05-22 07:10 | NUR ---
urine collected and sent to lab
--- NOTE | 2022-05-22 07:12 | NUR ---
IV LINE ESTABLISHED, LAC20G. BLOOD COLLECTED AND SENT TO LAB
[2022-05-22] MEDS ORDERED: KETOROLAC TROMETHAMINE 15 MG/ML VIAL ONE (07:13)
[2022-05-22 07:24] LABS: BASOPHILS % (AUTO) 0.5 % (0.0-2.0); EOSINOPHILS % (AUTO) 2.5 % (0.0-6.0); HEMATOCRIT 41 % (39-51); HEMOGLOBIN 12.9 g/dL (13.5-17.5); LYMPHOCYTES # (AUTO) 1.6 K/uL (0.8-4.8); LYMPHOCYTES % (AUTO) 18.4 % (20.0-44.0); MEAN CORPUSCULAR HGB CONC 32 g/dl (31.0-36.0); MEAN CORPUSCULAR VOLUME 69 fL (80-96); MONOCYTES # (AUTO) 0.9 K/uL (0.1-1.30); MONOCYTES % (AUTO) 9.8 % (2.0-12.0); NEUTROPHILS % (AUTO) 68.8 % (43.0-81.0); PLATELET COUNT (AUTO) 261 K/uL (150-450); WHITE BLOOD COUNT (AUTO) 8.7 K/uL (4.3-11.0)
[2022-05-22] MEDS ORDERED: LIDOCAINE 2% JEL UROJET 10 ML MM ONE (07:30)
[2022-05-22 07:33] LABS: BILIRUBIN,URINE NEGATIVE (NEGATIVE); COLOR,URINE YELLOW (YELLOW); LEUKOCYTE ESTERASE ,URINE NEGATIVE (NEGATIVE); NITRITE, URINE NEGATIVE (NEGATIVE); PH,URINE 6.5 (5.0-8.0); PROTEIN,URINE NEGATIVE (NEGATIVE); UGLUCOSE NEGATIVE (NEGATIVE); UROBILINOGEN,URINE 0.2 EU/dL (0.2)
[2022-05-22 07:35] LABS: CALCIUM, SERUM 8.5 mg/dL (8.5-10.1); CREATININE 0.9 mg/dL (0.6-1.3); POTASSIUM 3.9 mmol/L (3.5-5.1)
--- NOTE | 2022-05-22 07:43 | NUR ---
URINE SPECIMEN ALREADY OBTAINED BY LAB.
[2022-05-22] MEDS ORDERED: DOCU-141 PO (08:28)
[2022-05-22] MEDS ORDERED: POLY17PO4 PO (08:28)
[2022-05-22] MEDS ORDERED: SENN-261 PO (08:28)
[2022-05-22 08:31] LABS: BACTERIA,URINE None seen /HPF (None Seen); SQUAMOUS EPITHELIAL CELL,UR Rare /HPF (None Seen); WBC,URINE 0-2 /HPF (0-3)
--- NOTE | 2022-05-22 08:44 | NUR ---
IV removed. Catheter intact and site benign. Pressure and 4x4 applied to site. No bleeding noted.
[2022-05-22 08:46] VITALS: BP 134/80
--- NOTE | 2022-05-22 08:46 | NUR ---
Patient discharged to home in stable condition. Written and verbal after care instructions given. Patient verbalizes understanding of instruction.
== END 2022-05-22 09:03 | disposition home or self-care (01) ==
LOC: ER 06:36
DX: K59.00 Constipation, unspecified (principal); N99.89 Other postprocedural complications and disorders of genitourinary system; M10.9 Gout, unspecified; F17.200 Nicotine dependence, unspecified, uncomplicated; Z79.899 Other long term (current) drug therapy; Z90.49 Acquired absence of other specified parts of digestive tract
CPT/HCPCS: 99284; 96374; 96361; 74018; 85025; 80048; 81001; 36415; J7030; J1885

== ENCOUNTER 2022-12-14 11:40 | Outpatient (CLI) | payer BC, OTHER ==
[~2022-12-14 11:40] MED LIST changes: +DOCU-141 PO; +POLY17PO4 PO; +SENN-261 PO
== END 2022-12-14 23:59 | disposition home or self-care (01) ==
LOC: RAD 11:40
PROVIDERS: ATTEND Family Medicine
DX: R06.02 Shortness of breath (principal); Z72.0 Tobacco use
CPT/HCPCS: 71046

== ENCOUNTER 2023-06-11 08:43 | Outpatient (CLI) | payer BC, OTHER ==
[2023-06-11 09:56] LABS: BASOPHILS % (AUTO) 0.4 % (0.0-2.0); EOSINOPHILS # (AUTO) 0.3 K/uL (0.0-0.7); EOSINOPHILS % (AUTO) 2.8 % (0.0-6.0); HEMATOCRIT 41 % (39-51); HEMOGLOBIN 12.7 g/dL (13.5-17.5); LYMPHOCYTES # (AUTO) 3.4 K/uL (0.8-4.8); LYMPHOCYTES % (AUTO) 35.1 % (20.0-44.0); MEAN CORPUSCULAR HEMOGLOBIN 22 PG (26.0-33.0); MEAN CORPUSCULAR HGB CONC 31 g/dl (31.0-36.0); MEAN CORPUSCULAR VOLUME 71 fL (80-96); MONOCYTES # (AUTO) 0.7 K/uL (0.1-1.30); MONOCYTES % (AUTO) 6.9 % (2.0-12.0); NEUTROPHILS # (AUTO) 5.3 K/uL (1.8-8.9); NEUTROPHILS % (AUTO) 54.8 % (43.0-81.0); PLATELET COUNT (AUTO) 261 K/uL (150-450); RED BLOOD CELL COUNT(AUTO) 5.75 MIL/uL (4.5-6.0); RED CELL DISTRIBUTION WIDTH 16.2 % (11.5-15.0); WHITE BLOOD COUNT (AUTO) 9.7 K/uL (4.3-11.0)
[2023-06-11 10:19] LABS: APPEARANCE,URINE SLIGHTLY CLOUDY (CLEAR); BILIRUBIN,URINE NEGATIVE (NEGATIVE); BLOOD, URINE TRACE-INTA Ery/uL (NEGATIVE); COLOR,URINE YELLOW (YELLOW); KETONES,URINE NEGATIVE (NEGATIVE); LEUKOCYTE ESTERASE ,URINE TRACE (NEGATIVE); NITRITE, URINE NEGATIVE (NEGATIVE); PROTEIN,URINE NEGATIVE (NEGATIVE); UGLUCOSE NEGATIVE (NEGATIVE); UROBILINOGEN,URINE 0.2 EU/dL (0.2)
[2023-06-11 11:03] LABS: ADD URINE CULTURE NO; BACTERIA,URINE Rare /HPF (None Seen); RBC,URINE 0-2 /HPF (0-2); SQUAMOUS EPITHELIAL CELL,UR Few /HPF (None Seen); WBC,URINE 0-2 /HPF (0-3)
[2023-06-11 12:08] LABS: THYROID STIMULATING HORMONE 3.684 uIU/mL (0.358-3.74); URIC ACID 6.3 mg/dL (2.6-7.2)
[2023-06-11 12:19] LABS: BILIRUBIN,TOTAL 0.2 mg/dL (0.2-1.0); POTASSIUM 3.6 mmol/L (3.5-5.1); TOTAL PROTEIN, SERUM 7.9 g/dL (6.4-8.2)
[2023-06-11 12:31] LABS: CREATININE 0.8 mg/dL (0.6-1.3)
[2023-06-12 04:06] LABS: VIT D, 25-HYDROXY 35.4 ng/mL (30.0-100.0)
[2023-06-12 06:07] LABS: FOLIC ACID > 20.0 ng/mL (>3.0)
[2023-06-12 08:06] LABS: T3, FREE 3.7 pg/mL (2.0-4.4)
== END 2023-06-11 23:59 | disposition home or self-care (01) ==
LOC: RAD 08:43
PROVIDERS: ATTEND Family Medicine
DX: Z00.01 Encounter for general adult medical examination with abnormal findings (principal); R79.9 Abnormal finding of blood chemistry, unspecified; K21.9 Gastro-esophageal reflux disease without esophagitis
CPT/HCPCS: 36415; 71046; 80053-TC; 80061-TC; 81001; 82306; 82607-TC; 82728-TC; 83540-TC; 83735-TC; 84443-TC; 84481; 84550-TC; 85025-TC

== ENCOUNTER 2024-04-06 06:55 | Emergency (ER) | payer BC, OTHER ==
[~2024-04-06] VITALS: Ht 167.6 cm; Wt 113.4 kg
[2024-04-06] MEDS ORDERED: HYDR-3972 PO (07:42)
[2024-04-06] MEDS ORDERED: HYDR25SU33 RC (07:42)
[2024-04-06] MEDS ORDERED: HYDROCORTISONE ACETATE 25 MG/SUPP.RECT SUPP.RECT RC ONE (07:50)
[2024-04-06] MEDS: HYDROCORTISONE ACETATE 25 MG/SUPP.RECT SUPP.RECT RC ONE (07:53)
[2024-04-06 08:42] VITALS: BP 132/66; TEMP 98.3; O2SAT 97
== END 2024-04-06 08:42 | disposition home or self-care (01) ==
LOC: ER 07:02
DX: K64.9 Unspecified hemorrhoids (principal); E11.9 Type 2 diabetes mellitus without complications; Z90.49 Acquired absence of other specified parts of digestive tract; Z79.899 Other long term (current) drug therapy; Z79.891 Long term (current) use of opiate analgesic

== ENCOUNTER 2024-04-09 06:53 | Emergency (ER) | payer BC, OTHER ==
[~2024-04-09] VITALS: Ht 167.6 cm; Wt 113.4 kg
[~2024-04-09 06:53] MED LIST changes: +HYDR-3972 PO; +HYDR25SU33 RC
[2024-04-09 08:07] VITALS: BP 127/72; TEMP 98.4; O2SAT 98
== END 2024-04-09 08:07 | disposition home or self-care (01) ==
LOC: ER 06:57
DX: K64.9 Unspecified hemorrhoids (principal); E11.9 Type 2 diabetes mellitus without complications; F17.200 Nicotine dependence, unspecified, uncomplicated; Z90.49 Acquired absence of other specified parts of digestive tract; Z79.52 Long term (current) use of systemic steroids; Z79.899 Other long term (current) drug therapy

== ENCOUNTER → 2025-04-24 | Emergency (ER) | payer BC ==
[~2025-04-24] VITALS: Ht 167.6 cm; Wt 113.4 kg
[~2025-04-24] MED LIST changes: +DIPH25CA83 PO; +FAMO-131 PO; +FAMOTIDINE (20 MG) 20 MG TABLET ONE; +PRED20TA PO
[2025-04-24] MEDS: FAMOTIDINE (20 MG) 20 MG TABLET PO ONE (06:50)
[2025-04-24 07:20] VITALS: BP 114/65; TEMP 98.2; O2SAT 98
== END | disposition home or self-care (01) ==
LOC: ER 05:06
DX: L25.9 Unspecified contact dermatitis, unspecified cause (principal); E11.9 Type 2 diabetes mellitus without complications; F17.200 Nicotine dependence, unspecified, uncomplicated; M10.9 Gout, unspecified; Z79.52 Long term (current) use of systemic steroids; Z79.899 Other long term (current) drug therapy
CPT/HCPCS: 99283; J7512

== ENCOUNTER 2025-07-11 04:58 | Emergency (ER) | payer BC ==
[~2025-07-11] VITALS: Ht 172.7 cm; Wt 106.6 kg
[~2025-07-11 04:58] MED LIST changes: -FAMOTIDINE (20 MG) 20 MG TABLET ONE
[2025-07-11] MEDS ORDERED: LIDOCAINE 5% (PATCH) 1 EA PATCH TP ONE (06:41)
[2025-07-11] MEDS ORDERED: KETOROLAC TROMETHAMINE INJ 30 MG/ML VIAL ONE (06:42)
[2025-07-11] MEDS ORDERED: ACETAMINOPHEN 325 MG TABLET ONE (06:42)
[2025-07-11] MEDS: LIDOCAINE 5% (PATCH) 1 EA PATCH TP ONE (06:48)
[2025-07-11] MEDS: ACETAMINOPHEN 325 MG TABLET PO ONE (06:48)
[2025-07-11] MEDS: KETOROLAC TROMETHAMINE INJ 30 MG/ML VIAL IM ONE (06:48)
[2025-07-11] MEDS ORDERED: LIDO30AD10 TP (08:30)
[2025-07-11 08:37] VITALS: BP 145/83; TEMP 98.2; O2SAT 99
== END 2025-07-11 08:38 | disposition home or self-care (01) ==
LOC: ER 05:03
DX: M25.511 Pain in right shoulder (principal); E11.9 Type 2 diabetes mellitus without complications; F17.200 Nicotine dependence, unspecified, uncomplicated; Z79.52 Long term (current) use of systemic steroids; Z79.84 Long term (current) use of oral hypoglycemic drugs; Z79.899 Other long term (current) drug therapy
CPT/HCPCS: 99283; 96372; 73030; J1885